=== PATIENT | female | born 1965 | race Caucasian/White ===

== ENCOUNTER 2017-01-27 09:10 | Emergency (ER) | payer OTHER ==
[~2017-01-27] VITALS: Ht 154.9 cm; Wt 55.3 kg
[2017-01-27 09:23] VITALS: BP 97/63
--- NOTE | 2017-01-27 09:25 | NUR ---
Patient to bed 08.
--- NOTE | 2017-01-27 09:28 | NUR ---
51F BIB FAMILY C/O RT BIG TOE, 1ST DIGIT PAIN, RADIATES TO 2ND AND 3RD DIGIT, RT FOOT, THROBBING, 9/10 S/P TRIPPING ON ELIPTICAL YESTERDAY; PT STATES NO LOC AT TIME OF INCIDENT; MILD SWELLING NOTED TO RT BIG TOE AT THIS TIME; RT PEDAL PULSE +2, RT CAP REFILL < 2 SECONDS, NO LOSS OF SENSATION TO RT FOOT AT THIS TIME; PT AA&OX4, PERRLA, BL LUNG SOUNDS CLEAR, RR EVEN/UNLABORED, SKIN IS WARM/DRY/INTACT AT THIS TIME; PT STATES NO N/V/D AT THIS TIME; PT RESTING IN BED WITH HOB ELEVATED AND IN LOWEST POSITION; POSITIONED FOR COMFORT; ER MD MADE AWARE OF STATUS. WILL CONTINUE TO MONITOR.
--- NOTE | 2017-01-27 09:34 | NUR ---
ER MD DR. YODER EVALUATING PT AT BEDSIDE.
--- NOTE | 2017-01-27 10:02 | NUR ---
PT STATES DOES NOT WANT ANY MEDICATION FOR THE PAIN AT THIS TIME; ADVISED PATIENT IF SHE FEELS SHE WOULD LIKE MEDICATION FOR THE PAIN, TO LET ME KNOW; POSITIONED FOR COMFORT; WILL CONTINUE TO MONITOR.
[2017-01-27 10:59] VITALS: BP 102/70
--- NOTE | 2017-01-27 10:59 | NUR ---
Patient discharged with v/s stable. Written and verbal after care instructions given and explained. Patient alert, oriented and verbalized understanding of instructions. Ambulatory with steady gait. All questions addressed prior to discharge. ID band removed. Patient advised to follow up with PMD. Rx of IBUPROEN 800MG TAB given. Patient educated on indication of medication including possible reaction and side effects. Opportunity to ask questions provided and answered.
== END 2017-01-27 10:59 | disposition home or self-care (01) ==
LOC: MED 09:10
DX: S90.31XA Contusion of right foot, initial encounter (principal); W22.8XXA Striking against or struck by other objects, initial encounter; Y93.89 Activity, other specified; Y92.89 Other specified places as the place of occurrence of the external cause; Y99.8 Other external cause status
CPT/HCPCS: 73630; 99284

== ENCOUNTER 2021-06-21 12:17 | Inpatient (IN) | payer OTHER ==
[~2021-06-21] VITALS: Ht 152.4 cm; Wt 44.5 kg
[2021-06-21 12:25] VITALS: BP 105/62
[2021-06-21] MEDS ORDERED: MORPHINE SULFATE 4 MG/ML SYR IVP ONE (12:40)
[2021-06-21] MEDS ORDERED: NACL 0.9% 1,000 ML IV ONE (12:40)
--- NOTE | 2021-06-21 13:20 | NUR ---
55/F BIB TO ED WITH C/O LOWER ABDOMINAL PAIN RADIATING TO HER UPPER ABDOMEN SINCE LAST NIGHT. PATIENT STATES SHE FEELS HER STOOL IS "HARDER" THAN USUAL AND REPORTS INTERMITTENT FEVERS LAST NIGHT, REPORTS NAUSEA AND EPISODES OF VOMITING, STATES PAIN IS 9/10 AND CONSTANT. PATIENT REPORTS SHE TOOK TYLENOL AND PEPTO TODAY WITH MILD RELIEF. PATIENT DENIES DIARRHEA, URINARY SYMPTOMS, COUGH, FEVER OR RECENT SICK CONTACTS.
--- NOTE | 2021-06-21 13:23 | NUR ---
PT UNABLE TO PROVIDE URINE SAMPLE AT THIS TIME, DR. SIMMONS AWARE
[2021-06-21] MEDS ORDERED: ONDANSETRON 4 MG/2 ML VIAL IVP ONE (13:25)
[2021-06-21 13:45] LABS: BASOPHILS % (AUTO) 0.4 % (0.0-2.0); HEMATOCRIT 37.4 % (36-48); HEMOGLOBIN 12.6 g/dL (12.0-16.0); LYMPHOCYTES # (AUTO) 0.6 K/uL (2.5-16.5); LYMPHOCYTES % (AUTO) 8.8 % (20.5-51.1); MEAN CORPUSCULAR HEMOGLOBIN 32 pg (27-31); MEAN CORPUSCULAR HGB CONC 34 g/dL (33-37); MEAN CORPUSCULAR VOLUME 95.9 fL (80-94); MONOCYTES # (AUTO) 0.2 K/uL (0.8-1.0); MONOCYTES % (AUTO) 3.5 % (1.7-9.3); NEUTROPHILS # (AUTO) 5.9 K/uL (1.8-7.7); NEUTROPHILS % (AUTO) 87.3 % (42.2-75.2); PLATELET COUNT (AUTO) 183 K/uL (140-450); RED BLOOD CELL COUNT(AUTO) 3.91 MIL/uL (4.20-5.40); RED CELL DISTRIBUTION WIDTH 13.4 % (11.6-13.7); WHITE BLOOD COUNT (AUTO) 6.7 K/uL (4.8-10.8)
[2021-06-21 14:04] LABS: ALBUMIN 3.7 g/dL (3.4-5.0); ANION GAP 8.7 (8-16); CARBON DIOXIDE 26.7 mmol/L (21-32); CREATININE 0.6 mg/dL (0.6-1.3); POTASSIUM 3.4 mmol/L (3.5-5.1); TOTAL BILIRUBIN 0.5 mg/dL (0.0-1.0)
--- NOTE | 2021-06-21 14:25 | NUR ---
DR. SHERIDAN BEDSIDE SPEAKING WITH PATIENT, STATED CONSENT WILL NOT BE OBTAINED AT THIS TIME. VERBAL ORDER GIVEN FOR NG TUBE PLACEMENT.
[2021-06-21] MEDS ORDERED: KCL 20 MEQ/WATER INJ PREMIX 200 ML IV PRN (14:35)
[2021-06-21] MEDS ORDERED: MAG SULF 2000 MG/WATER PREMIX 50 ML IV PRN (14:35)
[2021-06-21] MEDS ORDERED: POTASSIUM CHLORIDE 10 MEQ TABER PO PRN (14:35)
[2021-06-21] MEDS ORDERED: MAGNESIUM OXIDE 400 MG TAB PO PRN (14:35)
--- NOTE | 2021-06-21 15:28 | NUR ---
TERELL LITTLE SAMPLE COLLECTED AND WALKED TO LAB
[2021-06-21] MEDS: NACL 0.9% 1,000 ML IV SCH (15:42)
--- NOTE | 2021-06-21 15:45 | NUR ---
PATIENT STILL UNABLE TO PROVIDE URINE AT THIS TIME.
[2021-06-21 16:06] LABS: PROTHROMBIN TIME 10.3 secs (10.8-13.4)
[2021-06-21] MEDS: LEVOFLOXACIN 500 MG/D5W PREMIX 100 ML IV SCH (16:32)
--- NOTE | 2021-06-21 16:52 | NUR ---
# 14 FR NG tube placed to right nare. Placement checked by auscultation of instilled air into stomach and chest xray confirmed by DR. Swartz. Tubing taped in place to prevent dislodging. Patient tolerated well.
--- NOTE | 2021-06-21 17:47 | NUR ---
PATIENT MOVED FROM BED 9 TO BED 12
--- NOTE | 2021-06-21 18:00 | NUR ---
PATIENT C/O 9/10 ABDOMINAL PAIN AND NAUSEA, PATIENT MEDICATED WITH PRN MORPHINE AND ZOFRAN ORDERED.
[2021-06-21] MEDS: ONDANSETRON 4 MG/2 ML VIAL IVP PRN (18:04)
[2021-06-21] MEDS: MORPHINE SULFATE 4 MG/ML SYR IVP PRN (18:06)
--- NOTE | 2021-06-21 18:45 | NUR ---
PATIENT APPEARS TO BE RESTING WITH EYES CLOSED, STATES PAIN AND NAUSEA HAS RESOLVED AT THIS TIME. PATIENT ON BEDSIDE FINISH CLEANER, LIGHTS DIMMED FOR COMFORT. WILL CONTINUE TO MONITOR.
[2021-06-21] MEDS ORDERED: ALEN70SO2 PO (18:54)
--- NOTE | 2021-06-21 19:25 | NUR ---
Pt report given to KERI BANERJEE. Transfer of care at this time.
--- NOTE | 2021-06-21 19:36 | NUR ---
PT APPEARS TO RESTING IN HIGH GILBERT'S, NG TUBE IN PLACE. EQUAL RISE AND FALL OF CHEST WALL. ALL NEEDS MET AT THIS TIME. VSS. BED LOCKED IN LOWEST POSITION, SIDE RAILS X2 FOR SAFETY.
--- NOTE | 2021-06-21 20:30 | NUR ---
PT MEDICATED FOR PAIN.
[2021-06-21] MEDS: ACETAMINOPHEN 325 MG TAB PO PRN (20:31)
[2021-06-21] MEDS: metroNIDAZOLE 500 MG/NS PREMIX 100 ML IV SCH (20:33)
--- NOTE | 2021-06-21 22:33 | NUR ---
PT APPEARS TO BE RESTING. EYES ARE CLOSED, EQUAL RISE AND FALL OF CHEST WALL. OPENS EYES TO SOUND. ALL NEEDS MET AT THIS TIME. BED LOCKED IN LOWEST POSITION, SIDE RAILS X2 FOR SAFETY. NG TUBE IN PLACE.
[2021-06-21 23:15] VITALS: BP 111/71
--- NOTE | 2021-06-21 23:20 | NUR ---
PT ADMITTED FROM ER @2315, VIA GURNEY. APPEARS RELAXED AND COOPERATIVE. PT HAS AN NG TUBE TO THE RIGHT NARES ON CONTINOUS INTERMITTENT SUCTIONING. IV SITE @RT AC 20G RUNNING WITH NS @80. VITALS WNL, PT SATING 100% AT RA. COLLECTED URINE PER ORDER FOR ANALYSIS, AND SAMPLE FOR MRSA OF NARES AND SENT TO LAB. ALL DUE MEDS GIVEN AND TOLERATED, NO ASE.
[2021-06-22] MEDS: NACL 0.9% 1,000 ML IV SCH ×2 (03:05→15:35)
[2021-06-22] MEDS: metroNIDAZOLE 500 MG/NS PREMIX 100 ML IV SCH ×3 (06:41→20:52)
[2021-06-22 07:08] LABS: BASOPHILS % (AUTO) 0.3 % (0.0-2.0); EOSINOPHILS % (AUTO) 0.2 % (0.0-4.0); HEMATOCRIT 38.1 % (36-48); HEMOGLOBIN 12.8 g/dL (12.0-16.0); LYMPHOCYTES # (AUTO) 1.1 K/uL (2.5-16.5); LYMPHOCYTES % (AUTO) 19.1 % (20.5-51.1); MEAN CORPUSCULAR HEMOGLOBIN 32 pg (27-31); MEAN CORPUSCULAR HGB CONC 34 g/dL (33-37); MEAN CORPUSCULAR VOLUME 96.5 fL (80-94); MONOCYTES # (AUTO) 0.4 K/uL (0.8-1.0); MONOCYTES % (AUTO) 6.7 % (1.7-9.3); NEUTROPHILS # (AUTO) 4.2 K/uL (1.8-7.7); NEUTROPHILS % (AUTO) 73.7 % (42.2-75.2); PLATELET COUNT (AUTO) 178 K/uL (140-450); RED BLOOD CELL COUNT(AUTO) 3.95 MIL/uL (4.20-5.40); WHITE BLOOD COUNT (AUTO) 5.7 K/uL (4.8-10.8)
--- NOTE | 2021-06-22 07:20 | NUR ---
RECEIVED REPORT FROM TOPOLOGY TEACHER NURSE FOR CONTINUITY OF CARE.
[2021-06-22 07:21] LABS: ANION GAP 10.3 (8-16); CARBON DIOXIDE 25.5 mmol/L (21-32); CREATININE 0.5 mg/dL (0.6-1.3); POTASSIUM 3.8 mmol/L (3.5-5.1); TOTAL BILIRUBIN 0.6 mg/dL (0.0-1.0)
[2021-06-22 08:00] VITALS: BP 110/69
--- NOTE | 2021-06-22 08:00 | NUR ---
REVIEWED AND DISCUSSED PLAN OF CARE WITH CHIOMA NUR. WILL CONTINUE TO MONITOR
[2021-06-22] MEDS: MORPHINE SULFATE 4 MG/ML SYR IVP PRN ×2 (11:08→20:53)
--- NOTE | 2021-06-22 11:12 | NUR ---
ADMINISTERED PAIN MEDICATION PER MD ORDER FOR PAIN 09/20. NO S/S OF DISTRESS. WILL CONTINUE TO MONITOR
--- NOTE | 2021-06-22 13:02 | NUR ---
RN GAVE FLAGYL ANTIBIOTIC.
--- NOTE | 2021-06-22 13:04 | NUR ---
ADMINISTERED IVPB PER MD ORDER. PT STABLE AND RESTING IN BED. NO S/S OF DISTRESS. CALL LIGHT IN REACH. ALL SAFETY MEASURES IN PLACE
--- NOTE | 2021-06-22 15:04 | NUR ---
LEVAQUIN ANTIBIOTICS ADMINISTERED BY
[2021-06-22] MEDS: LEVOFLOXACIN 500 MG/D5W PREMIX 100 ML IV SCH (15:09)
--- NOTE | 2021-06-22 15:09 | NUR ---
IVPB ADMINISTERED. PT STABLE. NO S/S OF DISTRESS
--- NOTE | 2021-06-22 15:43 | NUR ---
DC PLANNING: CM UNABLE TO SEE PATIENT FOR DISCHARGE PLANNING SHE LEFT AMA. Addendum: 06/23/21 at 1536 by Jojo Jones RN DC PLANNING: GASTROGRAFIN SMALL BOWEL SERIES REVEALED HIGH-GRADE DISTAL SBO AND RECURRENT RIGHT FEMORAL HERNIA. DR SHERIDAN PERFORMED OPED REPAIR OF RECURRENT RIGHT FEMORAL HERNIA WITHOUT MESH. PATIENT TOLERATED WELL. CONTINUE IVF, AND IV ABX LEVAQUIN AND FLAGYL. DC PLAN TO GO HOME WHEN STABLE. CM TO FOLLOW. Addendum: 06/24/21 at 0916 by Samira Manjarrez CM DC PLANNING: DISREGARD NOTE ENTERED ON 06/22, ENTRY ON WRONG PATIENT.
[2021-06-22 16:00] VITALS: BP 120/72
--- NOTE | 2021-06-22 17:00 | NUR ---
ON BED RESTING WITH CALL LIGHT WITH IN EASY REACH. CALL LIGHT WITH IN EASY REACH.
--- NOTE | 2021-06-22 19:30 | NUR ---
GAVE REPORT TO INSTRUCTIONAL MATERIAL DIRECTOR NURSE FOR CONTINUITY OF CARE.
--- NOTE | 2021-06-22 19:31 | NUR ---
RECEIVED ENDORSEMENT FROM BOOM BEDOLLA FOR CONTINUITY OF CARE. PATIENT IS AWAKE AND STABLE. A&OX4 [place]ORE[place] SPEAKING ONLY. VERBALLY RESPONSIVE AND ABLE TO COMMUNICATE NEEDS. ON ROOM AIR WITH NO APPARENT S/SX OF ACUTE DISTRESS. RESPIRATIONS EVEN AND UNLABORED. PATIENT IS ON BEDREST. PATIENT IS CONTINENT OF VOID AND BM. PATIENT HAS AN NG TUBE IN PLACE. PATIENT'S IV SITE TO RAC 20G IS PATENT/INTACT. PLAN OF CARE AND WHITE COMMUNICATION BOARD UPDATED. ALL SAFETY MEASURES IN PLACE. CALL LIGHT WITHIN REACH. WILL CONTINUE TO MONITOR.
[2021-06-22 20:00] VITALS: BP 124/74
--- NOTE | 2021-06-22 20:00 | NUR ---
Patient's Plan of Care was discussed and reviewed with BOOM: JIMMIE
--- NOTE | 2021-06-22 20:39 | NUR ---
CONTACTED DR. SHERIDAN REGARDING PT'S SMALL BOWEL X-RAY RESULTS HAVE BEEN POSTED.
--- NOTE | 2021-06-22 20:45 | NUR ---
PROVIDED PATIENT WITH BEDSIDE COMMODE.
--- NOTE | 2021-06-22 20:55 | NUR ---
PT WANTED MORPHINE FOR ABD PAIN. PT WANTED THE MEDICATION AFTER USING RESTROOM. AFTER USING THE RESTROOM PT REFUSE MEDICATION STATING SHE IS NOT IN ANY PAIN WHILE LAYING BACK ON THE BED. SHE WILL ASK FOR IT LATER ON WHEN SHE FEELS PAIN. NO OTHER COMPLAINS. CALL LIGHT WITHIN REACH. ALL SAFETY PRECAUTIONS TAKEN. WILL CONTINUE TO MONITOR THE PT.
--- NOTE | 2021-06-22 20:58 | NUR ---
SPOKE WITH DR. SHERIDAN. PER PATIENT WILL BE NPO EXCEPT MEDS FOR PENDING SURGERY TOMORROW.
--- NOTE | 2021-06-22 21:10 | NUR ---
ADMINISTERD SCHEDULED MEDS PER MD ORDER. TOLERATED WELL. PATIENT C/O 10/21 ABD PAIN. MARCUS RN FOR IV COVERAGE AWARE. RESPIRATIONS EVEN AND UNLABORED WITH NO APPARENT S/SX OF ACUTE DISTRESS. WHITE COMMUNICATION BOARD UPDATED. ALL SAFETY MEASURES IN PLACE. CALL LIGHT WITHIN REACH. WILL CONTINUE TO MONITOR.
--- NOTE | 2021-06-22 23:15 | NUR ---
CHECKED PATIENT. STABLE AND ASLEEP. CHEST IS RISING AND FALLING. RESPIRATIONS EVEN AND UNLABORED WITH NO APPARENT S/SX OF ACUTE DISTRESS. WHITE COMMUNICATION BOARD UPDATED. ALL SAFETY MEASURES IN PLACE. CALL LIGHT WITHIN REACH. WILL CONTINUE TO MONITOR.
[2021-06-23] MEDS: MORPHINE SULFATE 4 MG/ML SYR IVP PRN ×2 (00:32→15:21)
[2021-06-23] MEDS: ONDANSETRON 4 MG/2 ML VIAL IVP PRN (00:32)
--- NOTE | 2021-06-23 00:35 | NUR ---
FIXED PATIENT'S NG TUBE WALL ADAPTER WITH CHARGE NURSE BENEDICTO. TOLERATED WELL.
--- NOTE | 2021-06-23 01:15 | NUR ---
ROUNDED ON PATIENT. STABLE AND ASLEEP. CHEST IS RISING AND FALLING. RESPIRATIONS EVEN AND UNLABORED WITH NO APPARENT S/SX OF ACUTE DISTRESS. NG TUBE IN PLACE WITH VISIBLE OUTPUT. WHITE COMMUNICATION BOARD UPDATED. ALL SAFETY MEASURES IN PLACE. CALL LIGHT WITHIN REACH. WILL CONTINUE TO MONITOR.
[2021-06-23 04:00] VITALS: BP 117/65
[2021-06-23] MEDS: NACL 0.9% 1,000 ML IV SCH ×2 (04:05→17:25)
[2021-06-23] MEDS: metroNIDAZOLE 500 MG/NS PREMIX 100 ML IV SCH ×2 (04:49→12:29)
--- NOTE | 2021-06-23 05:15 | NUR ---
CHANGED PATIENT'S IVF BAG. PATIENT IS STABLE AND ASLEEP. CHEST IS RISING AND FALLING EVENLY. RESPIRATIONS EVEN AND UNLABORED WITH NO APPARENT S/SX OF ACUTE DISTRESS. NG TUBE IN PLACE WITH VISIBLE OUTPUT. ALL NEEDS MET. ALL SAFETY MEASURES IN PLACE. CALL LIGHT WITHIN REACH. WILL CONTINUE TO MONITOR.
[2021-06-23 06:43] LABS: BASOPHILS % (AUTO) 0.3 % (0.0-2.0); HEMATOCRIT 41.4 % (36-48); HEMOGLOBIN 13.8 g/dL (12.0-16.0); LYMPHOCYTES # (AUTO) 0.9 K/uL (2.5-16.5); LYMPHOCYTES % (AUTO) 11.9 % (20.5-51.1); MEAN CORPUSCULAR HEMOGLOBIN 32 pg (27-31); MEAN CORPUSCULAR HGB CONC 33 g/dL (33-37); MEAN CORPUSCULAR VOLUME 97.4 fL (80-94); MONOCYTES # (AUTO) 0.4 K/uL (0.8-1.0); MONOCYTES % (AUTO) 6.2 % (1.7-9.3); NEUTROPHILS # (AUTO) 5.9 K/uL (1.8-7.7); NEUTROPHILS % (AUTO) 81.6 % (42.2-75.2); PLATELET COUNT (AUTO) 180 K/uL (140-450); RED BLOOD CELL COUNT(AUTO) 4.25 MIL/uL (4.20-5.40); RED CELL DISTRIBUTION WIDTH 13.7 % (11.6-13.7); WHITE BLOOD COUNT (AUTO) 7.2 K/uL (4.8-10.8)
--- NOTE | 2021-06-23 07:05 | NUR ---
ENDORSED PATIENT TO BOOM BEDOLLA FOR CONTINUITY OF CARE. PATIENT IS STABLE.
--- NOTE | 2021-06-23 07:07 | NUR ---
RECEIVED REPORT FROM GAME MODERATOR NURSE FOR CONTINUITY OF CARE.
[2021-06-23 07:15] LABS: ALBUMIN 3.1 g/dL (3.4-5.0); ANION GAP 12.6 (8-16); CARBON DIOXIDE 24.8 mmol/L (21-32); CREATININE 0.6 mg/dL (0.6-1.3); POTASSIUM 3.4 mmol/L (3.5-5.1); TOTAL BILIRUBIN 0.5 mg/dL (0.0-1.0)
[2021-06-23] MEDS ORDERED: BUPIVACAINE-MPF/EPI 0.25% 30 ML VIAL INJ ONE (08:46)
--- NOTE | 2021-06-23 08:52 | NUR ---
PATIENT HAS BEEN SCREENED AND CATEGORIZED HIGH NUTRITION RISK. PATIENT WILL BE SEEN WITHIN 1-2 DAYS OF ADMISSION. 06/23/[address]
[2021-06-23] MEDS: PANTOPRAZOLE 40 MG INJ VIAL IVP SCH (09:00)
--- NOTE | 2021-06-23 09:13 | NUR ---
HOLD HEPARIN DUE TO POSSIBLE PROCEDURE FOR RIGHT HERNIA INGUINAL WITH MESH. INFORMED DR ZARCO REGARDING CONSENT THAT THE DAUGHTER WANTS TO BE CALLED PRIOR TO SIGNING CONSENT.
--- NOTE | 2021-06-23 09:35 | NUR ---
DR SHERIDAN AND 2 OR NURSES WERE AT THE PT ROOM. DR SHERIDAN EXPLAINED THE PROCEDURE TO THE PT AND SPOKE TO THE DAUGHTER OVER THE PHONE WELL. PT LEFT THE UNIT WITH THE OR NURSES VIA YUMIKO. PT IS STABLE.
[2021-06-23] MEDS ORDERED: MIDAZOLAM 2 MG/2 ML VIAL ONE ×2 (09:52→10:32)
[2021-06-23] MEDS ORDERED: fentaNYL citrate 0.05 MG/ML VIAL ONE (09:58)
[2021-06-23] MEDS ORDERED: ceFAZolin 1,000 MG VIAL ONE (10:03)
[2021-06-23] MEDS ORDERED: ONDANSETRON 4 MG/2 ML VIAL IVP PRN (11:15)
[2021-06-23] MEDS ORDERED: HYDROmorphone 1 MG/ML AMP IVP PRN (11:15)
--- NOTE | 2021-06-23 11:45 | NUR ---
PATIENT CAME BACK FROM OR WHEEL BY OR STAFF. PATIENT AWAKE ABLE TO RESPONDS VERBALLY. COMPLAIN OF RIGHT GROIN AREA.
[2021-06-23] MEDS: ACETAMINOPHEN 325 MG TAB PO PRN (12:11)
--- NOTE | 2021-06-23 12:29 | NUR ---
PT WAS GIVEN IVPB FLAGYL NOW.
[2021-06-23] MEDS: LEVOFLOXACIN 500 MG/D5W PREMIX 100 ML IV SCH (14:07)
--- NOTE | 2021-06-23 14:07 | NUR ---
PT WAS GIVEN LEVAQUIN IVPB NOW.
[2021-06-23 16:00] VITALS: BP 120/76
--- NOTE | 2021-06-23 16:01 | NUR ---
06/23/21 RD INITIAL ASSESSMENT COMPLETED PLEASE REFER TO NUTRITION ASSESSMENT UNDER CARE ACTIVITY FOR ESTIMATED NUTRITIONAL NEEDS. 1. CONTINUE CLEAR LIQUID DIET TOLERATED -WHEN/IF MEDICALLY APPROPRIATE, ADVANCE TO REGULAR DIET TOLERATED 2. RECOMMEND ENSURE CLEAR BID PER RD PROTOCOL 3. RD TO FOLLOW-UP 3-5 DAYS, MODERATE RISK (DOWNGRADED D/T GI SYMPTOMS RESOLVED) [address]
--- NOTE | 2021-06-23 18:50 | NUR ---
PATIENT ASLEEP NO DISTRESS NOTED BUT WHEN SHE WAKE UP RESIDENT COMPLAIN OF PAIN. ASSISTED WITH ADL'S. CALL LIGHT WITH IN EASY REACH.
--- NOTE | 2021-06-23 19:14 | NUR ---
ENDORSED PT TO UX CONSULTANT NURSE FOR CONTINUITY OF CARE. ALL NEEDS MET THROUGHOUT SHIFT. PT IS STABLE.
--- NOTE | 2021-06-23 19:20 | NUR ---
PT REPORT RECEIVED FROM [facility]. CARE TAKEN OVER. UPON ASSESSMENT, PT AWAKE IN BED EATING DINNER. [facility], PT JUST RECEIVED NORCO FOR PAIN. PAIN PRESENT AT THIS TIME PER PT, BUT WILL REASSESS AFTER 30MIN. PT VITALS STABLE. WILL CONTINUE TO MONITOR. Addendum: 06/23/21 at 2000 by Jl Andrade RN PT RECEIVED TYLENOL FOR HER PAIN, NOT NORCO.
--- NOTE | 2021-06-23 22:00 | NUR ---
PT AWAKE, ON TELEPHONE WITH FAMILY MEMBER. NO DISTRESS. WILL CONTINUE TO MONITOR.
--- NOTE | 2021-06-24 00:13 | NUR ---
PT SLEEPING. NO DISTRESS NOTED. WILL CONTINUE TO MONITOR.
--- NOTE | 2021-06-24 01:38 | NUR ---
PT AWAKE, HELPED OUT OF BED TO BEDSIDE COMMODE. PT VOIDED. ASSISTED PT BACK TO BED. WITH PAIN TO AREA OF SURGICAL SITE - RIGHT GROIN. WILL GIVE PAIN MEDICATION PER MD ORDER.
[2021-06-24] MEDS: MORPHINE SULFATE 4 MG/ML SYR IVP PRN (01:42)
[2021-06-24] MEDS: NACL 0.9% 1,000 ML IV SCH (02:41)
--- NOTE | 2021-06-24 03:42 | NUR ---
PT SLEEPING. NO S/S OF PAIN OR DISTRESS. WILL CONTINUE TO MONITOR.
[2021-06-24 04:00] VITALS: BP 96/59
--- NOTE | 2021-06-24 06:21 | NUR ---
PT EASILY AWAKENS TO NAME. DENIES PAIN. NO DISTRESS. WILL CONTINUE TO MONITOR.
[2021-06-24 06:43] LABS: BASOPHILS % (AUTO) 0.4 % (0.0-2.0); HEMATOCRIT 31.6 % (36-48); HEMOGLOBIN 10.8 g/dL (12.0-16.0); LYMPHOCYTES # (AUTO) 1.3 K/uL (2.5-16.5); LYMPHOCYTES % (AUTO) 21.2 % (20.5-51.1); MEAN CORPUSCULAR HEMOGLOBIN 33 pg (27-31); MEAN CORPUSCULAR HGB CONC 34 g/dL (33-37); MEAN CORPUSCULAR VOLUME 97.6 fL (80-94); MONOCYTES # (AUTO) 0.4 K/uL (0.8-1.0); MONOCYTES % (AUTO) 6.9 % (1.7-9.3); NEUTROPHILS # (AUTO) 4.5 K/uL (1.8-7.7); NEUTROPHILS % (AUTO) 71.5 % (42.2-75.2); PLATELET COUNT (AUTO) 150 K/uL (140-450); RED BLOOD CELL COUNT(AUTO) 3.24 MIL/uL (4.20-5.40); RED CELL DISTRIBUTION WIDTH 13.9 % (11.6-13.7); WHITE BLOOD COUNT (AUTO) 6.3 K/uL (4.8-10.8)
[2021-06-24 06:45] LABS: ALBUMIN 2.4 g/dL (3.4-5.0); ANION GAP 8.9 (8-16); CARBON DIOXIDE 24.6 mmol/L (21-32); CREATININE 0.5 mg/dL (0.6-1.3); POTASSIUM 3.5 mmol/L (3.5-5.1); TOTAL BILIRUBIN 0.4 mg/dL (0.0-1.0)
--- NOTE | 2021-06-24 06:48 | NUR ---
WILL ENDORSE CARE TO MARIZA SAAVEDRA.
[2021-06-24 08:00] VITALS: BP 95/55
--- NOTE | 2021-06-24 08:00 | NUR ---
RECEIVED ENDORSE FROM PM SHIFT NURSE. PATIENT REST IN BED W/O ACUTE DISTRESS NOTE AT THIS TIME, PIV RAC 20G PATENT. NS IV INFUSING @80ML/HR.
[2021-06-24] MEDS: PANTOPRAZOLE 40 MG INJ VIAL IVP SCH (09:36)
[2021-06-24] MEDS: ACETAMINOPHEN 325 MG TAB PO PRN ×2 (12:16→23:15)
--- NOTE | 2021-06-24 12:20 | NUR ---
AROUND 1100 PCP HERE, AND PATIENT MARGE W/ NO ACUTE DISTRESS. 1200, PATIENT'S VITAL TEMPERATURE 100.4. GIVEN TYLENOL 650MG FOR ELEVATED TEMPERATURE. RECHECK PATIENT, TEMPERATURE 99.9. WILL CONTINUE TO MONITOR
[2021-06-24 16:00] VITALS: BP 98/54
--- NOTE | 2021-06-24 19:38 | NUR ---
ENDORSE PT TO PM SHIFT NURSE. PATIENT REST IN BED W/O ACUTE DISTRESS NOTE AT THIS TIME, PIV RAC 20G PATENT. NS IV INFUSING @80ML/HR
--- NOTE | 2021-06-24 20:25 | NUR ---
PATIENT IN BED WELL RESTED AAOX4. ON ROOM AIR. IVF NS INFUSING AT 80 ML/HR. NO S/S OF RESPIRATORY DISTRESS. BREATHING REGULAR NON LABORED. AMBULATORY. NO COMPLAINTS OF PAIN AT THIS TIME. SAFETY MEASURES IN PLACE. CALL LIGHT WITHIN REACH.
--- NOTE | 2021-06-24 20:45 | NUR ---
ASNWERED CALL LIGHT, NEEDS ATTENDED TO.
--- NOTE | 2021-06-24 21:12 | NUR ---
HEPARIN ADMINISTERED ORDERED.
--- NOTE | 2021-06-24 23:15 | NUR ---
PATIENT COMPLAINED OF MILD HEADACHE, TYLENOL PRN ADMINISTERED ORDERED.
[2021-06-25] VITALS: BP 111/67
--- NOTE | 2021-06-25 02:20 | NUR ---
ROUNDED PATIENT, PT IS SLEEPING, NO S/S OF RESPIRATORY DISTRESS. CALL LIGHT WITHIN REACH.
--- NOTE | 2021-06-25 07:15 | NUR ---
ENDORSED TO AM NURSE FOR CONTINUITY OF CARE. PT IS STABLE.
[2021-06-25 07:20] LABS: BASOPHILS % (AUTO) 0.7 % (0.0-2.0); EOSINOPHILS % (AUTO) 0.8 % (0.0-4.0); HEMATOCRIT 29.5 % (36-48); HEMOGLOBIN 10.1 g/dL (12.0-16.0); LYMPHOCYTES # (AUTO) 1.3 K/uL (2.5-16.5); LYMPHOCYTES % (AUTO) 28.8 % (20.5-51.1); MEAN CORPUSCULAR HEMOGLOBIN 33 pg (27-31); MEAN CORPUSCULAR HGB CONC 34 g/dL (33-37); MONOCYTES # (AUTO) 0.3 K/uL (0.8-1.0); MONOCYTES % (AUTO) 6.9 % (1.7-9.3); NEUTROPHILS # (AUTO) 2.9 K/uL (1.8-7.7); NEUTROPHILS % (AUTO) 62.8 % (42.2-75.2); PLATELET COUNT (AUTO) 147 K/uL (140-450); RED BLOOD CELL COUNT(AUTO) 3.07 MIL/uL (4.20-5.40); RED CELL DISTRIBUTION WIDTH 13.7 % (11.6-13.7); WHITE BLOOD COUNT (AUTO) 4.6 K/uL (4.8-10.8)
[2021-06-25 07:39] LABS: ALBUMIN 2.3 g/dL (3.4-5.0); ANION GAP 11.2 (8-16); CARBON DIOXIDE 24.9 mmol/L (21-32); CREATININE 0.5 mg/dL (0.6-1.3); POTASSIUM 3.1 mmol/L (3.5-5.1); TOTAL BILIRUBIN 0.4 mg/dL (0.0-1.0)
[2021-06-25 08:00] VITALS: BP 108/63
[2021-06-25] MEDS ORDERED: ACET-1182 PO (15:13)
[2021-06-25 16:00] VITALS: BP 107/59
[2021-06-25 17:46] VITALS: BP 107/59
[2021-06-25 17:58] VITALS: BP 107/59
--- NOTE | 2021-06-25 19:02 | NUR ---
D/C PATIENT HOME W/ STABLE CONDITION. PIV, WRIST BAND REMOVED
--- NOTE | 2021-07-01 10:30 | NUR ---
DC PLANNING BETTY CALLED PATIENT'S PCP OFFICE AT TO SCHEDULED A FOLLOW UP APPOINTMENT FOR PATIENT AFTER HER DC FROM [facility]. BETTY SPOKE TO EVELIA AT PCP OFFICE WHO PROVIDED A FOLLOW UP APPOINTMENT FOR PATIENT ON 07/09/19 AT 14:00 WITH Andrew STACY VIA TELEHEALTH. PER EVELIA THAT IS THE SOONEST APPOINTMENT AVAILABLE FOR PATIENT THIS WEEK, THEREFORE; THIS AMMONIUM NITRATE NEUTRALIZER SCHEDULED APPT. AND ENDED THE CALL. BETTY CALLED PATIENT AT ([phone] TO INFORM PATIENT OF HER SCHEDULED APPOINTMENT BY THERE AMMONIUM NITRATE NEUTRALIZER WITH PCP WITHIN 7 DAYS OF HER DISCHARGE FROM [facility]. BETTY PROVIDED PATIENT WITH ALL INFORMATION TIME, DATE AND INFORM HER ABOUT HER FOLLOW UP APPOINTMENT IS VIA TELEHEALTH. PATIENT AGREED TO ANSWER THE CALL FOR HER SCHEDULED APPOINTMENT AND THANK THESE AMMONIUM NITRATE NEUTRALIZER FOR THE CALL.
== END 2021-06-25 19:00 | disposition home or self-care (01) | DRG 228 ==
LOC: MED 12:17 → MTU 14:42
PROVIDERS: ADMIT Internal Medicine; ATTEND Internal Medicine
PROC: 0W9G0ZZ Drainage of Peritoneal Cavity, Open Approach (ICD-10-PCS; 2021-06-23)
PROC: 0YQ70ZZ Repair Right Femoral Region, Open Approach (ICD-10-PCS; principal; 2021-06-23 09:00)
DX: K41.31 Unilateral femoral hernia, with obstruction, without gangrene, recurrent (principal); U07.1 COVID-19; R18.8 Other ascites; K56.609 Unspecified intestinal obstruction, unspecified as to partial versus complete obstruction; E83.51 Hypocalcemia
CPT/HCPCS: 36415; 71045; 74250; 80053; 83690; 84703; 85025; 85610; 85730; 86886; 86900; 86901; 87040; 87081; 87635-QW; 88302; 93005; 96361; 96365; 96375; 99285; C9113; J0690; J1644; J1956; J2250; J2270; J2405; J3010; J3490; J7030; J7120; Q0092

== ENCOUNTER 2022-12-26 11:17 | Emergency (ER) | payer OTHER ==
[~2022-12-26] VITALS: Ht 154.9 cm; Wt 44.5 kg
[~2022-12-26 11:17] MED LIST: ACET-1182 PO; ALEN70SO2 PO
[2022-12-26 11:51] VITALS: BP 98/74; PULSE 77; RESP 16; TEMP 97.2; O2SAT 99
[2022-12-26] MEDS ORDERED: DICYCLOMINE HCL LIQUID 20 MG, ALUMINUM HYD/MAG/SIMETHICONE 30 ML, LIDOCAINE VISCOUS 2% ... PO ONE ×3 (13:05)
[2022-12-26] MEDS ORDERED: ONDANSETRON 4 MG ODT PO ONE (13:05)
[2022-12-26] MEDS ORDERED: DICYCLOMINE HCL LIQUID 10 MG/5 ML UDC ONE ×2 (13:18→13:42)
[2022-12-26] MEDS ORDERED: ALUMINUM HYD/MAG/SIMETHICONE 30 ML UDC ONE ×2 (13:18→13:41)
[2022-12-26 13:22] LABS: BASOPHILS % (AUTO) 0.7 % (0.0-2.0); EOSINOPHILS # (AUTO) 0.1 K/uL (0-0.4); EOSINOPHILS % (AUTO) 1.5 % (0.0-4.0); HEMATOCRIT 36.9 % (36-48); HEMOGLOBIN 12.4 g/dL (12.0-16.0); LYMPHOCYTES # (AUTO) 1.1 K/uL (2.5-16.5); LYMPHOCYTES % (AUTO) 24.9 % (20.5-51.1); MEAN CORPUSCULAR HEMOGLOBIN 32 pg (27-31); MEAN CORPUSCULAR HGB CONC 34 g/dL (33-37); MEAN CORPUSCULAR VOLUME 95.9 fL (80-94); MONOCYTES # (AUTO) 0.4 K/uL (0.8-1.0); MONOCYTES % (AUTO) 8.3 % (1.7-9.3); NEUTROPHILS # (AUTO) 2.9 K/uL (1.8-7.7); NEUTROPHILS % (AUTO) 64.6 % (42.2-75.2); PLATELET COUNT (AUTO) 233 K/uL (140-450); RED BLOOD CELL COUNT(AUTO) 3.84 MIL/uL (4.20-5.40); WHITE BLOOD COUNT (AUTO) 4.5 K/uL (4.8-10.8)
[2022-12-26 13:32] VITALS: O2SAT 99
[2022-12-26 13:32] LABS: ALBUMIN 3.3 g/dL (3.4-5.0); ANION GAP 10.3 (8-16); CALCIUM 8.2 mg/dL (8.5-10.1); CARBON DIOXIDE 30.1 mmol/L (21-32); CREATININE 0.7 mg/dL (0.6-1.3); POTASSIUM 4.4 mmol/L (3.5-5.1); TOTAL BILIRUBIN 0.2 mg/dL (0.0-1.0); TOTAL PROTEIN, SERUM 6.8 g/dL (6.4-8.2)
[2022-12-26] MEDS ORDERED: [UNRECOGNIZED DRUG - CODE] PO (14:40)
== END 2022-12-26 14:50 | disposition home or self-care (01) ==
LOC: MED 11:17
DX: J02.9 Acute pharyngitis, unspecified (principal); R06.02 Shortness of breath; R07.9 Chest pain, unspecified; Z79.899 Other long term (current) drug therapy
CPT/HCPCS: 36415; 70360; 71045; 80053; 85025; 87081; 99284; Q0162